=== PATIENT | female | born 1995 | race Caucasian/White ===

== ENCOUNTER 2016-11-27 16:06 | Emergency (ER) | payer MEDICAID, OTHER ==
[~2016-11-27] VITALS: Ht 162.6 cm; Wt 70.5 kg
[2016-11-27 16:09] VITALS: Ht 162.6 cm; Wt 70.5 kg
[2016-11-27] MEDS ORDERED: ONDANSETRON (ODT) 4 MG TAB ODT STA (16:36)
[2016-11-27] MEDS ORDERED: KETOROLAC 30 MG INJ IM STA (16:36)
[2016-11-27] MEDS ORDERED: ONDA4TAB14 PO (18:05)
[2016-11-27] MEDS ORDERED: IBUP-1542 PO (18:05)
--- NOTE | 2016-11-27 18:14 | ERD ---
ER Documentation Chief Complaint Date/Time DATE: 11/27/16 TIME: 18:07 Chief Complaint bodyache and headache x 4 days HPI Patient is a 29-year-old female with no past medical history who presents to the emergency department for concerns of generalized body aches and a headache. Patient states she has generalized body aches for the last 4 days. Patient is currently on her menstrual period. Patient states she developed a headache yesterday night. Patient describes the pain to be in occipital region. Patient denies any falls or trauma. Patient describes her pain to be a mild, throbbing sensation. Patient denies any radiation of pain. Patient denies any sudden, 10 out of 10, thunderclap onset of her pain. Patient denies taking any medication. Patient admits to nausea however she denies any vomiting. Patient denies any blurry vision, photophobia, phonophobia, LOC. Patient does report having headaches in the past which is similar to the current headache. Patient denies any chest pain, shortness of breath, abdominal pain. ROS All systems reviewed and are negative except as per history of present illness. Medications Home Meds Active Scripts Ondansetron (Ondansetron Odt) 4 Mg Tab.rapdis, 4 MG PO Q6H Y for NAUSEA AND/OR VOMITING, #10 TAB Prov:YOLANDA BEE PA-C 11/27/16 Ibuprofen* (Motrin*) 600 Mg Tab, 600 MG PO Q6, #30 TAB Prov:YOLANDA BEE PA-C 11/27/16 Allergies Allergies: Coded Allergies: No Known Allergy (Unverified , 12/17/14) PMhx/Soc Medical and Surgical Hx: pt denies Medical Hx, pt denies Surgical Hx Hx Alcohol Use: No Hx Substance Use: No Hx Tobacco Use: No Physical Exam Vitals Vital Signs Date Time Temp Pulse Resp B/P Pulse Ox O2 Delivery O2 Flow Rate FiO2 11/27/16 16:09 96.9 76 20 115/70 100 Physical Exam GENERAL: Well-developed, well-nourished female. Appears in no acute distress. Taking in full sentences. HEAD: Normocephalic, atraumatic. EYES: Pupils are equally reactive bilaterally. EOMs grossly intact. No conjunctival erythema. ENT: Moist mucous membranes. No uvula deviation. No kissing tonsils. NECK: Supple. Normal range of motion of the neck. No neck stiffness noted. Tra LUNG: Clear to auscultation bilaterally. No rhonchi, wheezing, rales or coarse breath sounds. HEART: Regular rate and rhythm. No murmurs, rubs or gallops. BACK: No midline tenderness. EXTREMITIES: Equal pulses bilaterally. No peripheral clubbing, cyanosis or edema. No unilateral leg swelling. NEUROLOGIC: Alert and oriented x3, cooperative. Mood and affect appropriate to situation. Cranial nerves II through XII are grossly intact. Normal speech. Motor exam: 5/5 strength in upper and lower extremities. Sensory exam: Sensation intact to light touch on all four extremities. Cerebellar function exam: Rapid alternating movements intact. No dysmetria on [id number] test. Steady gait. No pronator drift. SKIN: Normal color. Warm and dry. No rashes or lesions. Results 24 hrs Current Medications Medications (Trade) Dose Ordered Sig/José Miguel Route PRN Reason Start Time Stop Time Status Last Admin Dose Admin Ketorolac Tromethamine (Toradol) 30 mg ONCE STAT IM 11/27/16 16:36 11/27/16 16:37 DC 11/27/16 16:47 Ondansetron HCl (Zofran Odt) 4 mg ONCE STAT ODT 11/27/16 16:36 11/27/16 16:37 DC 11/27/16 16:46 Procedures/MDM MEDICAL DECISION MAKING: This a 21 year old female who presents to the ED with generalized body aches and headache. Vital signs were reviewed. Patient was afebrile. Patient is not hypoxic. Patient stated that the headache was gradual. Patient stated that current headache was similar to headaches in the past. Patient denied any fevers, neck stiffness, jaw claudication, visual changes or LOC. Full neurological exam was normal. Patient is currently on her menstrual period. Patient was given Toradol IM and Zofran her in the ED. Patient reported significant improvement in symptoms. Patient noted to be talking on phone in ED results waiting room without any distress. Given these findings, the patient's presentation is most consistent with tension vs menstrual headache. I have a much lower clinical concern for intracranial hemorrhage, meningitis, encephalitis, CO poisoning, temporal arteritis, benign intracranial hypertension , intracranial mass, glaucoma, preeclampsia, sinusitis, migraine headache, cluster headache. PRESCRIPTIONS: Ibuprofen, Zofran DISCHARGE: At this time, patient is stable for discharge and outpatient management. I have encouraged the patient to hydrate well. I have instructed the patient to follow- up with his/her primary care physician in 1-2 days. If symptoms persist, patient may need to see a specialist for further examinations and testing. I have instructed the patient to promptly return to the ER at any time for any new or worsening symptoms including increased increased pain, fever, nausea, vomiting, numbness, neck stiffness, visual changes, weakness or LOC. The patient and/or family expressed understanding of and agreement with this plan. All questions were answered. Home care instructions were provided. Departure Diagnosis: Primary Impression: Headache Headache type: unspecified Headache chronicity pattern: unspecified pattern Intractability: not intractable Qualified Code: R51 - Nonintractable headache, unspecified chronicity pattern, unspecified headache type Condition: Stable Patient Instructions: Self-Care for Headaches Referrals: [facility] YOU HAVE RECEIVED A MEDICAL SCREENING EXAM AND THE RESULTS INDICATE THAT YOU DO NOT HAVE A CONDITION THAT REQUIRES URGENT TREATMENT IN THE EMERGENCY DEPARTMENT. FURTHER EVALUATION AND TREATMENT OF YOUR CONDITION CAN WAIT UNTIL YOU ARE SEEN IN YOUR DOCTORS OFFICE WITHIN THE NEXT 1-2 DAYS. IT IS YOUR RESPONSIBILITY TO MAKE AN APPOINTMENT FOR FOLOW-UP CARE. IF YOU HAVE A PRIMARY DOCTOR --you should call your primary doctor and schedule an appointment IF YOU DO NOT HAVE A PRIMARY DOCTOR YOU CAN CALL OUR PHYSICIAN REFERRAL HOTLINE AT IF YOU CAN NOT AFFORD TO SEE A PHYSICIAN YOU CAN CHOSE FROM THE FOLLOWING [facility] [address] [facility]. [facility] [address] [facility]. [facility] [address] [facility] [address] [facility]. [facility] [address] [facility]. [facility]. [address] [facility]. [facility] YOU HAVE RECEIVED A MEDICAL SCREENING EXAM AND THE RESULTS INDICATE THAT YOU DO NOT HAVE A CONDITION THAT REQUIRES URGENT TREATMENT IN THE EMERGENCY DEPARTMENT. FURTHER EVALUATION AND TREATMENT OF YOUR CONDITION CAN WAIT UNTIL YOU ARE SEEN IN YOUR DOCTORS OFFICE WITHIN THE NEXT 1-2 DAYS. IT IS YOUR RESPONSIBILITY TO MAKE AN APPOINTMENT FOR FOLOW-UP CARE. IF YOU HAVE A PRIMARY DOCTOR --you should call your primary doctor and schedule and appointment IF YOU DO NOT HAVE A PRIMARY DOCTOR YOU CAN CALL OUR PHYSICIAN REFERRAL HOTLINE AT . IF YOU CAN NOT AFFORD TO SEE A PHYSICIAN YOU CAN CHOSE FROM THE FOLLOWING [facility] INSTITUTIONS: [facility] [address] [place] [address] [facility] [address] [place] [address] [facility] [address] [place] [address] Additional Instructions: Call your primary care doctor TOMORROW for an appointment during the next 1-2 days.See the doctor sooner or return here if your condition worsens before your appointment time. YOLANDA BEE PA-C Nov 27, 2016 18:14
== END 2016-11-27 18:10 | disposition home or self-care (01) ==
LOC: FTE 16:06
DX: R51 Headache (principal); R11.0 Nausea
CPT/HCPCS: 96372; J1885; Z7502; Z7610

== ENCOUNTER 2016-12-11 10:48 | Emergency (ER) | payer MEDICAID, OTHER ==
[~2016-12-11] VITALS: Ht 167.6 cm; Wt 71.5 kg
[~2016-12-11 10:48] MED LIST: IBUP-1542 PO; ONDA4TAB14 PO
[2016-12-11 10:51] VITALS: Ht 167.6 cm; Wt 71.5 kg
[2016-12-11] MEDS ORDERED: ALPRAZOLAM 0.25 MG TAB PO ONE (11:30)
[2016-12-11 12:00] LABS: BASOPHILS % 0.3 % (0.0-2.0); EOSINOPHILS # 0.1 10^3/ul (0.0-0.5); EOSINOPHILS % 1.2 % (0.0-7.0); HEMATOCRIT 36.4 % (37.0-47.0); HEMOGLOBIN 12.1 g/dl (12.0-16.0); LYMPHOCYTES # 2.5 10^3/ul (0.8-2.9); LYMPHOCYTES % 32.7 % (15.0-51.0); MEAN CORPUSCULAR HEMOGLOBIN 28.2 pg (29.0-33.0); MEAN CORPUSCULAR HGB CONC 33.2 g/dl (32.0-37.0); MEAN CORPUSCULAR VOLUME 84.8 fl (82.0-101.0); MEAN PLATELET VOLUME 10.2 fl (7.4-10.4); MONOCYTE # 0.7 10^3/ul (0.3-0.9); MONOCYTES % 9.1 % (0.0-11.0); NEUTROPHIL # 4.3 10^3/ul (1.6-7.5); NEUTROPHILS % 56.3 % (39.0-77.0); PLATELET COUNT 210 10^3/UL (140-415); RED BLOOD COUNT 4.29 10^6/ul (4.20-5.40); RED CELL DISTRIBUTION WIDTH 12.7 % (11.5-14.5); WHITE BLOOD COUNT 7.7 10^3/ul (4.8-10.8)
--- NOTE | 2016-12-11 12:46 | RADRPT ---
PROCEDURE: CT Head without. CLINICAL INDICATION: 21-year-old female with headaches. TECHNIQUE: The study was performed utilizing a multi-slice, multidetector CT scanner. Direct spira l 1 mm axial sections were obtained through the head without the use of intravenous contrast materia l. 1 or more of the following dose reduction techniques were utilized: Automated exposure control, adjustment of the mA and/or kV according to patient's size, iterative reconstruction technique. Co melani and sagittal reformations were obtained. The images were reviewed on a PACS workstation. RADIATION DOSE: CTDIvol: 44.9 mGyDLP: 720.2 mGy-cm COMPARISON: No prior studies are available for comparison. FINDINGS: There is no intracranial hemorrhage, extra-axial fluid collection, mass lesion, midline shift or hyd rocephalus. The ventricles, sulci and cisterns are within normal limits. The white matter is unrem arkable. The tom-white matter differentiation is preserved. The basal cisterns are patent. The m idline structures are intact. The orbits, calvarium and extracranial soft tissues are normal in genevieve earance. The visualized paranasal sinuses, mastoid air cells and middle ear cavities are normally ae rated. IMPRESSION: 1. No acute intracranial abnormality. No intracranial hemorrhage, extra-axial fluid collection, ma ss lesion or hydrocephalous. RPTAT: HGAS .Colt Caballero MD, MD Date Time Electronically viewed and signed by .Colt Caballero MD, MD on 12/11/2016 12:45 .S/
[2016-12-11] MEDS ORDERED: ALPR0.5T PO (12:56)
[2016-12-11] MEDS ORDERED: NAPR-688 PO (12:56)
--- NOTE | 2016-12-11 17:55 | ERD ---
ER Documentation Chief Complaint Date/Time DATE: 12/11/16 TIME: 17:53 Chief Complaint Complains of headache, weakness and being stressed out HPI 1-year-old woman with multiple complaints including "months" of intermittent chest pain, dizziness, weakness, and scalp pain with headache. She was seen and evaluated recently and workup was negative, she has been told in the past that she is anemic but denies melena, blood per rectum, or menorrhagia. Patient denies trauma, no weight loss, no fevers or chills, no recent travel or antibiotic use. Upon further questioning she states symptoms usually associated with work and she states she feels "stressed out" due to her busy schedule, work, school, and single motherhood. ROS All systems reviewed and are negative except as per history of present illness. Medications Home Meds Active Scripts Alprazolam* (Xanax*) 0.5 Mg Tab, 0.5 MG PO TID for ANXIETY, #12 TAB Prov:EDIN CAMPUZANO MD 12/11/16 Naproxen* (Naproxen*) 500 Mg Tablet, 500 MG PO BID Y for PAIN, #30 TAB Prov:EDIN CAMPUZANO MD 12/11/16 Ondansetron (Ondansetron Odt) 4 Mg Tab.rapdis, 4 MG PO Q6H Y for NAUSEA AND/OR VOMITING, #10 TAB Prov:YOLANDA BEE PA-C 11/27/16 Ibuprofen* (Motrin*) 600 Mg Tab, 600 MG PO Q6, #30 TAB Prov:YOLANDA BEE PA-C 11/27/16 Allergies Allergies: Coded Allergies: No Known Allergy (Unverified , 12/17/14) PMhx/Soc None Medical and Surgical Hx: pt denies Surgical Hx History of Surgery: No Anesthesia Reaction: No Hx Neurological Disorder: No Hx Respiratory Disorders: No Hx Cardiac Disorders: No Hx Psychiatric Problems: No Hx Miscellaneous Medical Probl: Yes (ANEMIA) Hx Alcohol Use: No Hx Substance Use: No Hx Tobacco Use: No Smoking Status: Never smoker FmHx Family History: No diabetes Physical Exam Vitals Vital Signs Date Time Temp Pulse Resp B/P Pulse Ox O2 Delivery O2 Flow Rate FiO2 12/11/16 10:51 98.6 85 20 123/80 99 Physical Exam GENERAL: Well-developed, well-nourished, well-hydrated, appears anxious HEENT: Moist mucous membranes, pink conjunctiva, no cervical spine tenderness or step-off deformities, no goiter, no jaundice or icterus, extraocular movements intact without pain. No submandibular induration, and no pharyngeal erythema NEURO: Alert and oriented 3, cranial nerves II through XII intact bilaterally, pupils equal round reactive to light, no focal deficits or facial asymmetry, sensation intact distally Strength 5/5 in upper and lower extremities bilaterally CARDIAC: Regular rate and rhythm, no murmurs rubs or gallops LUNGS: Clear bilaterally no wheezing crackles or stridor ABDOMEN: Soft nontender, no guarding, no rigidity, no rebound, no psoas sign no obturator sign. Normoactive bowel sounds SKIN: Warm and dry to touch, no abrasions, contusions, or hematomas, no lacerations, no ecchymosis, no target lesions, and without ulcers EXTREMITIES: No clubbing cyanosis or edema, calves are bilaterally symmetrical, no Homans sign, no popliteal cord sign. Distal pulses equal and bilateral PSYCH: Anxious Result Diagram: 12/11/16 1143 Results 24 hrs Laboratory Tests Test 12/11/16 11:43 White Blood Count 7.710^3/ul Red Blood Count 4.2910^6/ul Hemoglobin 12.1g/dl Hematocrit 36.4% Mean Corpuscular Volume 84.8fl Mean Corpuscular Hemoglobin 28.2pg Mean Corpuscular Hemoglobin Concent 33.2g/dl Red Cell Distribution Width 12.7% Platelet Count 57381^3/UL Mean Platelet Volume 10.2fl Neutrophils % 56.3% Lymphocytes % 32.7% Monocytes % 9.1% Eosinophils % 1.2% Basophils % 0.3% Nucleated Red Blood Cells % 0.0/100WBC Neutrophils # 4.310^3/ul Lymphocytes # 2.510^3/ul Monocytes # 0.710^3/ul Eosinophils # 0.110^3/ul Basophils # 0.010^3/ul Nucleated Red Blood Cells # 0.010^3/ul Current Medications Medications (Trade) Dose Ordered Sig/José Miguel Route PRN Reason Start Time Stop Time Status Last Admin Dose Admin Alprazolam (Xanax) 0.5 mg ONCE ONCE PO 12/11/16 11:30 12/11/16 11:31 DC 12/11/16 11:32 Procedures/MDM CT scan of the brain was performed that was negative for acute bleed mass or shift. CBC was normal. I administered alprazolam 1 mg p.o. with good response. Differential diagnoses considered, included but not limited to acute coronary syndrome, pulmonary embolism, aortic dissection, abdominal aortic aneurysm, sepsis, stroke, meningitis, encephalitis, pneumonia, appendicitis, cholecystitis , bowel obstruction, pyelonephritis, nephrolithiasis, cystitis, as well as metabolic, hematologic, and electrolyte abnormalities. As well as abscess, cellulitis, fractures, and dislocations. Patient feels much better at this time, and vital signs are normal, symptoms have improved. I did give strict instructions to return to the ED if symptoms continue or worsen, patient will otherwise follow-up with primary care physician. Patient understood instructions and agreed to plan. Disclaimer: Inadvertent spelling and grammatical errors are likely due to EHR/ dictation software use and do not reflect on the overall quality of patient care. Also, please note that the electronic time recorded on this note does not necessarily reflect the actual time of the patient encounter. Departure Diagnosis: Primary Impression: Headache Headache type: unspecified Headache chronicity pattern: acute headache Intractability: not intractable Qualified Code: R51 - Acute nonintractable headache, unspecified headache type Additional Impression: Anxiety Condition: Good Patient Instructions: Anxiety Reaction, Headache, Tension Referrals: JOSE BAPTISTE MD, JOSEF MD SINGH, BALBIR MD ZOHRABIAN, DAVID MD Dec 11, 2016 17:55
== END 2016-12-11 13:15 | disposition home or self-care (01) ==
LOC: FTE 10:48
DX: R51 Headache (principal); F41.9 Anxiety disorder, unspecified
CPT/HCPCS: 36415; 70450; 85025; Z7502; Z7610

== ENCOUNTER 2018-01-04 15:48 | Emergency (ER) | END 2018-01-04 18:30 | disposition home or self-care (01) ==

== ENCOUNTER 2018-05-28 14:05 | Emergency (ER) | payer OTHER ==
[~2018-05-28] VITALS: Ht 170.2 cm; Wt 76.6 kg
[~2018-05-28 14:05] MED LIST changes: +ALPR0.5T PO; +CEPH-443 PO; +NAPR-688 PO
[2018-05-28 14:07] VITALS: RESP 18; Ht 170.2 cm; Wt 76.6 kg
[2018-05-28] MEDS ORDERED: HYDR25CA PO (16:47)
--- NOTE | 2018-05-28 16:52 | ERD ---
ER Documentation Chief Complaint Chief Complaint dizziness feels anxious and just wants lab work HPI This is a 23-year-old female that presents to the emergency room with complaint of lightheadedness, dizziness, difficulty focusing, heart palpitations, chest tightness. States she is has a history of anxiety. She does not take med ications or go to counseling. She is concerned that she may be anemic as she has history of anemia. Not get regular medical care from primary care provider. She states she is stressed out as she is a single parent, goes to 2 different schools, and works full-time. Also states she has difficulty sleeping due to her anxiety. Denies SI. She has tried Xanax in the past and did not like how it made her feel. She prefers to use exercise to manage her anxiety. ROS All systems reviewed and are negative except as per history of present illness. Medications Home Meds Active Scripts Hydroxyzine Pamoate* (Vistaril*) 25 Mg Capsule, 25 MG PO Q6H PRN for ANXIETY for 7 Days, #15 CAP Prov:KAYCEE CHAUHAN NP 05/28/18 Ibuprofen* (Motrin*) 600 Mg Tab, 600 MG PO Q6, #30 TAB Prov:WALLACE CARPENTER PA-C 01/04/18 Cephalexin* (Keflex*) 500 Mg Capsule, 500 MG PO QID for 7 Days, CAP Prov:WALLACE CARPENTER PA-C 01/04/18 Alprazolam* (Xanax*) 0.5 Mg Tab, 0.5 MG PO TID for ANXIETY, #12 TAB Prov:EDIN CAMPUZANO MD 12/11/16 Naproxen* (Naproxen*) 500 Mg Tablet, 500 MG PO BID PRN for PAIN, #30 TAB Prov:EDIN CAMPUZANO MD 12/11/16 Ondansetron (Ondansetron Odt) 4 Mg Tab.rapdis, 4 MG PO Q6H PRN for NAUSEA AND/OR VOMITING, #10 TAB Prov:YOLANDA BEE PA-C 11/27/16 Ibuprofen* (Motrin*) 600 Mg Tab, 600 MG PO Q6, #30 TAB Prov:YOLANDA BEE PA-C 11/27/16 Allergies Allergies: Coded Allergies: No Known Allergy (Unverified , 12/17/14) PMhx/Soc Medical and Surgical Hx: pt denies Surgical Hx History of Surgery: No Anesthesia Reaction: No Hx Neurological Disorder: No Hx Respiratory Disorders: No Hx Cardiac Disorders: No Hx Psychiatric Problems: No Hx Miscellaneous Medical Probl: Yes (ANEMIA, Anxiety) Hx Alcohol Use: No Hx Substance Use: No Hx Tobacco Use: No Smoking Status: Never smoker FmHx Family History: No diabetes, No coronary disease, No other Physical Exam Vitals Vital Signs Date Temp Pulse Resp B/P (MAP) Pulse Ox O2 O2 Flow FiO2 Time Delivery Rate 05/28/18 61 100/59 16:53 (73) 72 101/65 (77) 77 103/68 (80) 05/28/18 97.8 62 18 120/68 97 14:07 (85) Physical Exam GENERAL APPEARANCE: Well developed, well nourished, alert and cooperative, and appears to be in no acute distress. HEAD: normocephalic. EYES: PERRL, EOMI. Vision is grossly intact. EARS: External auditory canals and tympanic membranes clear, hearing grossly intact. NOSE: No nasal discharge. THROAT: Oral cavity and pharynx normal. No inflammation, swelling, exudate, or lesions. Teeth and gingiva in good general condition. NECK: Neck supple, non-tender without lymphadenopathy, masses or thyromegaly. CARDIAC: Normal S1 and S2. No S3, S4 or murmurs. Rhythm is regular. There is no peripheral edema, cyanosis or pallor. Extremities are warm and well perfused. Capillary refill is less than 2 seconds. No carotid bruits. LUNGS: Clear to auscultation and percussion without rales, rhonchi, wheezing or diminished breath sounds. ABDOMEN: Positive bowel sounds. Soft, non-distended, non-tender. No guarding or rebound. No murmurs MUSKULOSKELETAL: Adequately aligned spine. ROM intact spine and extremities. No joint erythema or tenderness. Normal muscular development. Normal gait. BACK: Examination of the spine reveals normal gait and posture, no spinal deformity, symmetry of spinal muscles, without tenderness, decreased range of motion or muscular spasm. EXTREMITIES: No significant deformity or joint abnormality. No edema. Peripheral pulses intact. No varicosities. LOWER EXTREMITY: Examination of both feet reveals all toes to be normal in size and symmetry, normal range of motion, normal sensation with distal capillary filling of less than 2 seconds without tenderness, swelling, discoloration, nodules, weakness or deformity; examination of both ankles, knees, legs, and hips reveals normal range of motion, normal sensation without tenderness, swelling, discoloration, crepitus, weakness or deformity. NEUROLOGICAL: CN II-XII intact. Strength and sensation symmetric and intact throughout. Reflexes 2+ throughout. Cerebellar testing normal. SKIN: Skin normal color, texture and turgor with no lesions or eruptions PSYCHIATRIC: The mental examination revealed the patient was oriented to person, place, and time. The patient was able to demonstrate good judgment and reason, without hallucinations, abnormal affect or abnormal behaviors during the examination. Patient is not suicidal. Result Diagram: 05/28/18 1646 05/28/18 1646 Results 24 hrs Laboratory Tests Test 05/28/18 16:37 05/28/18 16:38 05/28/18 16:46 Bedside Urine pH (LAB) 6.0 Bedside Urine Protein (LAB) Negative Bedside Urine Glucose (UA) Negative Bedside Urine Ketones (LAB) Negative Bedside Urine Blood 3+ Bedside Urine Nitrite (LAB) Negative Bedside Urine Leukocyte Esterase 2+ (L POC Beta HCG, Qualitative NEGATIVE White Blood Count 6.8 10^3/ul Red Blood Count 4.10 10^6/ul Hemoglobin 11.5 g/dl Hematocrit 35.8 % Mean Corpuscular Volume 87.3 fl Mean Corpuscular Hemoglobin 28.0 pg Mean Corpuscular 32.1 g/dl Hemoglobin Concent Red Cell Distribution Width 12.4 % Platelet Count 210 10^3/UL Mean Platelet Volume 10.2 fl Immature Granulocytes % 0.300 % Neutrophils % 55.0 % Lymphocytes % 35.2 % Monocytes % 7.3 % Eosinophils % 1.9 % Basophils % 0.3 % Nucleated Red Blood Cells % 0.0 /100WBC Immature Granulocytes # 0.020 10^3/ul Neutrophils # 3.8 10^3/ul Lymphocytes # 2.4 10^3/ul Monocytes # 0.5 10^3/ul Eosinophils # 0.1 10^3/ul Basophils # 0.0 10^3/ul Nucleated Red Blood Cells # 0.0 10^3/ul Sodium Level 136 mmol/L Potassium Level 4.0 mmol/L Chloride Level 102 mmol/L Carbon Dioxide Level 25 mmol/L Anion Gap 9 Blood Urea Nitrogen 12 mg/dl Creatinine 0.62 mg/dl Est Glomerular Filtrat Rate mL/min > 60 mL/min Glucose Level 88 mg/dl Calcium Level 9.5 mg/dl Total Bilirubin 0.2 mg/dl Direct Bilirubin 0.00 mg/dl Indirect Bilirubin 0.2 mg/dl Aspartate Amino Transf (AST/SGOT) 25 IU/L Alanine 46 IU/L Aminotransferase (ALT/SGPT) Alkaline Phosphatase 69 IU/L Total Protein 7.7 g/dl Albumin 4.3 g/dl Globulin 3.40 g/dl Albumin/Globulin Ratio 1.26 Procedures/MDM This 23 yo female presented to the ER with multiple complaints including anxiety, lightheaded, difficulty focusing, insomnia. Reports intermittent heart palpitations and chest tightness. Feels better with exercise. Reports multiple life stressors. Not on antidepressant, not seeing psychiatrist, does not currently have primary care doctor. Reports medical history includes anemia, anxiety, ParaGard. Denies tobacco use, alcohol use, recreational drug use. ED COURSE: The patient was stable throughout ED course. I kept the patient informed of laboratory results throughout the ED course. EKG: Read by Dr. Gonzalez attending physician. EKG shows normal sinus rhythm at a rate of 66bpm. No arrhythmias, acute ST elevations or T wave changes were noted. PROCEDURES: Orthostatic VS: Supine: 61 bpm, BP 100/59 Sittin bpm, BP 101/65 Standin bpm, BP 103/68 MEDICATIONS GIVEN: No anxiolytic provided in ER as patient had her small child with her and was driving. No other medications indicated, no cp. This patient has been evaluated for her concern of hx of anemia and recent dizziness with standing. Laboratory results are negative for anemia. Her hemoglobin is slightly decreased, however she is currently menstruating and not concerning of acute blood loss. Low suscpicion for dizziness having a neurogenic or cardiac cause. She has no neuro deficits, ECG NSR, and negative orthostatics. We did not test her TSH level. She has been informed to follow-up with PMD to have TSH tested and treated if necessary. The patient is clinically well appearing and stable. Symptoms are not suggestive of cardiac ischemia, pulmonary embolus, aortic dissection, or other serious etiology. These diagnoses have been considered and excluded clinically and with additional diagnostic studies as indicated. Nonetheless, it is understood by both the patient and provider that no clinical or diagnostic assessment can entirely exclude such diseases. Chest pain and stroke precautions have been given and the patient has been advised to return for worsening symptoms or any concerns. Prescription for vistaril provided with strict instructions to only use medication to help with sleep. Side effects and precautions provided. At discharge patient verbalized that she has plan to rearrange her life to decrease her stressors. She verbalized appreciating for care provided. Departure Diagnosis: Primary Impression: Anxiety Condition: Stable Patient Instructions: Your Body's Response to Anxiety, Anxiety Reaction Referrals: RO CORONA MD [facility] YOU HAVE RECEIVED A MEDICAL SCREENING EXAM AND THE RESULTS INDICATE THAT YOU DO NOT HAVE A CONDITION THAT REQUIRES URGENT TREATMENT IN THE EMERGENCY DEPARTMENT. FURTHER EVALUATION AND TREATMENT OF YOUR CONDITION CAN WAIT UNTIL YOU ARE SEEN IN YOUR DOCTORS OFFICE WITHIN THE NEXT 1-2 DAYS. IT IS YOUR RESPONSIBILITY TO MAKE AN APPOINTMENT FOR FOLOW-UP CARE. IF YOU HAVE A PRIMARY DOCTOR --you should call your primary doctor and schedule an appointment IF YOU DO NOT HAVE A PRIMARY DOCTOR YOU CAN CALL OUR PHYSICIAN REFERRAL HOTLINE AT IF YOU CAN NOT AFFORD TO SEE A PHYSICIAN YOU CAN CHOSE FROM THE FOLLOWING [facility] [address] [facility]. [facility] [address] [facility]. [facility] [address] [facility] [facility] [address] [facility]. [facility] [address] [facility]. [facility]. [address] [place] Additional Instructions: Follow-up with community primary care provider. Take Vistaril at night to help with sleep. Do not take while operating the vehicle, do not take with alcohol. This medication may make you drowsy. Return to the ER immediately with any worsening or changing symptoms. KAYCEE CHAUHAN NP May 28, 2018 16:52
[2018-05-28 16:53] VITALS: BP 103/68; PULSE 77
== END 2018-05-28 17:57 | disposition home or self-care (01) ==
LOC: FTE 14:05
DX: F41.9 Anxiety disorder, unspecified (principal); R42 Dizziness and giddiness
CPT/HCPCS: 36415; 80053; 81003; 81025; 85025; 93005; Z7502

== ENCOUNTER 2018-07-12 10:29 | Emergency (ER) | payer OTHER ==
[~2018-07-12] VITALS: Ht 167.6 cm; Wt 76.8 kg
[~2018-07-12 10:29] MED LIST changes: +HYDR25CA PO
[2018-07-12 10:33] VITALS: BP 108/71; PULSE 69; RESP 18; Ht 167.6 cm; Wt 76.8 kg
[2018-07-12] MEDS ORDERED: HYDR-3029 PO (11:44)
[2018-07-12] MEDS ORDERED: FLUO10CA26 PO (11:44)
--- NOTE | 2018-07-12 12:52 | ERD ---
ER Documentation Chief Complaint Chief Complaint pt has anxiety x 2 days HPI 23-year-old female presenting with anxiety for 2 days. Patient states that in the past she is taking Xanax was alleviated her symptoms however she was concerned about medication dependency and does not want to be on medication. Patient also states she is having a hard time getting out of bed and feels sad. She has not been able to follow-up with her primary doctor. She has no suicidal or homicidal ideations. Denies any chest pain or shortness of breath. Denies fevers. Denies medical problems. NKDA. Surgical history denies. Social history denies ROS All systems reviewed and are negative except as per history of present illness. Medications Home Meds Active Scripts Fluoxetine Hcl* (Prozac*) 10 Mg Capsule, 10 MG PO DAILY, #30 CAP Prov:KATHY CAMERON PA-C 07/12/18 Hydroxyzine Hcl* (Hydroxyzine Hcl*) 10 Mg Tablet, 10 MG PO Q6H PRN for ANXIETY, #30 TAB Prov:KATHY CAMERON PA-C 07/12/18 Hydroxyzine Pamoate* (Vistaril*) 25 Mg Capsule, 25 MG PO Q6H PRN for ANXIETY for 7 Days, #15 CAP Prov:KAYCEE CHAUHAN NP 05/28/18 Ibuprofen* (Motrin*) 600 Mg Tab, 600 MG PO Q6, #30 TAB Prov:WALLACE CARPENTER PA-C 01/04/18 Cephalexin* (Keflex*) 500 Mg Capsule, 500 MG PO QID for 7 Days, CAP Prov:WALLACE CARPENTER PA-C 01/04/18 Alprazolam* (Xanax*) 0.5 Mg Tab, 0.5 MG PO TID for ANXIETY, #12 TAB Prov:EDIN CAMPUZANO MD 12/11/16 Naproxen* (Naproxen*) 500 Mg Tablet, 500 MG PO BID PRN for PAIN, #30 TAB Prov:EDIN CAMPUZANO MD 12/11/16 Ondansetron (Ondansetron Odt) 4 Mg Tab.rapdis, 4 MG PO Q6H PRN for NAUSEA AND/OR VOMITING, #10 TAB Prov:YOLANDA BEE PA-C 11/27/16 Ibuprofen* (Motrin*) 600 Mg Tab, 600 MG PO Q6, #30 TAB Prov:CRISTALYOLANDA PA-C 11/27/16 Allergies Allergies: Coded Allergies: No Known Allergy (Unverified , 07/12/18) PMhx/Soc History of Surgery: No Anesthesia Reaction: No Hx Neurological Disorder: No Hx Respiratory Disorders: No Hx Cardiac Disorders: No Hx Psychiatric Problems: No Hx Miscellaneous Medical Probl: Yes (ANEMIA, Anxiety) Hx Alcohol Use: No Hx Substance Use: No Hx Tobacco Use: No FmHx Family History: No diabetes, No coronary disease, No other Physical Exam Vitals Vital Signs Date Temp Pulse Resp B/P (MAP) Pulse Ox O2 O2 Flow FiO2 Time Delivery Rate 07/12/18 98.7 69 18 108/71 100 10:33 (83) Physical Exam GENERAL: The patient is well-appearing, well-nourished, in no acute distress HEENT: Atraumatic. Conjunctivae are pink. Pupils equal, round, and reactive to light. There is no scleral icterus. Tympanic membranes clear bilaterally. Oropharynx clear. NECK: C-spine is soft and supple. There is no meningismus. There is no cervical lymphadenopathy. CHEST: Clear to auscultation bilaterally. There are no rales, wheezes or rhonchi. HEART: Regular rate and rhythm. No murmurs, clicks, rubs or gallops. Procedures/MDM MDM: 23-year-old female presenting with findings consistent with anxiety. I have low suspicion for cardiac or pulmonary emergency. I have low suspicion for infectious process. Patient does not require antibiotic treatment. Patient is told symptoms change or worsen to return immediately to the ER. Patient is recommended to follow-up with primary care and to obtain psychiatric consultation. All questions answered at discharge Departure Diagnosis: Primary Impression: Anxiety Condition: Stable Patient Instructions: Your Body's Response to Anxiety Referrals: COMM[facility] YOU HAVE RECEIVED A MEDICAL SCREENING EXAM AND THE RESULTS INDICATE THAT YOU DO NOT HAVE A CONDITION THAT REQUIRES URGENT TREATMENT IN THE EMERGENCY DEPARTMENT. FURTHER EVALUATION AND TREATMENT OF YOUR CONDITION CAN WAIT UNTIL YOU ARE SEEN IN YOUR DOCTORS OFFICE WITHIN THE NEXT 1-2 DAYS. IT IS YOUR RESPONSIBILITY TO MAKE AN APPOINTMENT FOR FOLOW-UP CARE. IF YOU HAVE A PRIMARY DOCTOR --you should call your primary doctor and schedule an appointment IF YOU DO NOT HAVE A PRIMARY DOCTOR YOU CAN CALL OUR PHYSICIAN REFERRAL HOTLINE AT IF YOU CAN NOT AFFORD TO SEE A PHYSICIAN YOU CAN CHOSE FROM THE FOLLOWING [facility] CL[facility] [address] [facility] [address] [facility] [address] [facility] [address] [facility] [address] [facility]. [facility]. [address] Additional Instructions: FOLLOW UP WITH YOUR PRIMARY CARE PHYSICIAN TOMORROW.Return to this facility if you are not improving as expected. KATHY CAMERON PA-C Jul 12, 2018 12:52
== END 2018-07-12 12:39 | disposition home or self-care (01) ==
LOC: FTE 10:29
DX: F41.9 Anxiety disorder, unspecified (principal)
CPT/HCPCS: 99283

== ENCOUNTER 2018-08-17 13:47 | Emergency (ER) | payer OTHER ==
[~2018-08-17] VITALS: Ht 167.6 cm; Wt 77.0 kg
[~2018-08-17 13:47] MED LIST changes: +FLUO10CA26 PO; +HYDR-3029 PO
[2018-08-17 14:01] VITALS: BP 104/60; PULSE 77; RESP 19; Ht 167.6 cm; Wt 77.0 kg
[2018-08-17] MEDS ORDERED: LOPE2CAP PO (15:14)
[2018-08-17] MEDS ORDERED: DICY10CA40 PO (15:14)
--- NOTE | 2018-08-17 15:16 | ERD ---
ER Documentation Chief Complaint Chief Complaint DIARRHEA, ON AND ON ABDOMINAL PAIN SINCE WEDNESDAY HPI 23-year-old female is here with intermittent abdominal pain with diarrhea for the past 3 to 4 days. No dark or bloody stool. She had nausea when it first started but no vomiting. Symptoms began after eating seafood. She has control IUD so she does not believe she is . She took Mylanta which help with the pain. No fever. No urinary symptoms. ROS All systems reviewed and are negative except as per history of present illness. Medications Home Meds Active Scripts Loperamide Hcl* (Imodium*) 2 Mg Capsule, 2 MG PO .AFTER EA LOOSE BM PRN for DIARRHEA, #20 TAB Prov:SARTHAK MAY PA-C 08/17/18 Dicyclomine HCl (Dicyclomine HCl) 10 Mg Capsule, 10 MG PO TID PRN for ABDOMINAL CRAMPING, #20 CAP Prov:SARTHAK MAY PA-C 08/17/18 Fluoxetine Hcl* (Prozac*) 10 Mg Capsule, 10 MG PO DAILY, #30 CAP Prov:KATHY CAMERON PA-C 07/12/18 Hydroxyzine Hcl* (Hydroxyzine Hcl*) 10 Mg Tablet, 10 MG PO Q6H PRN for ANXIETY, #30 TAB Prov:KATHY CAMERON PA-C 07/12/18 Hydroxyzine Pamoate* (Vistaril*) 25 Mg Capsule, 25 MG PO Q6H PRN for ANXIETY for 7 Days, #15 CAP Prov:KAYCEE CHAUHAN NP 05/28/18 Ibuprofen* (Motrin*) 600 Mg Tab, 600 MG PO Q6, #30 TAB Prov:WALLACE CARPENTER PA-C 01/04/18 Cephalexin* (Keflex*) 500 Mg Capsule, 500 MG PO QID for 7 Days, CAP Prov:WALLACE CARPENTER PA-C 01/04/18 Alprazolam* (Xanax*) 0.5 Mg Tab, 0.5 MG PO TID for ANXIETY, #12 TAB Prov:EDIN CAMPUZANO MD 12/11/16 Naproxen* (Naproxen*) 500 Mg Tablet, 500 MG PO BID PRN for PAIN, #30 TAB Prov:EDIN CAMPUZANO MD 9/29/17 Ondansetron (Ondansetron Odt) 4 Mg Tab.rapdis, 4 MG PO Q6H PRN for NAUSEA AND/OR VOMITING, #10 TAB Prov:CRISTALYOLANDA WEBBER 11/27/16 Ibuprofen* (Motrin*) 600 Mg Tab, 600 MG PO Q6, #30 TAB Prov:YOLANDA BEE AKBAR 11/27/16 Allergies Allergies: Coded Allergies: No Known Allergy (Unverified , 07/12/18) PMhx/Soc Medical and Surgical Hx: pt denies Surgical Hx History of Surgery: No Anesthesia Reaction: No Hx Neurological Disorder: No Hx Respiratory Disorders: No Hx Cardiac Disorders: No Hx Psychiatric Problems: No Hx Miscellaneous Medical Probl: Yes (ANEMIA, Anxiety) Hx Alcohol Use: No Hx Substance Use: No Hx Tobacco Use: No Smoking Status: Never smoker FmHx Family History: No diabetes Physical Exam Vitals Vital Signs Date Temp Pulse Resp B/P (MAP) Pulse Ox O2 O2 Flow FiO2 Time Delivery Rate 08/17/18 98.2 77 19 104/60 99 14:01 (75) Physical Exam INITIAL VITAL SIGNS: Reviewed by me GENERAL: Awake, alert and oriented x 4, well appearing, nontoxic, speaking in full sentences. No acute distress HEAD: Atraumatic NECK: Supple. No masses. Full range of motion. No meningismus. No midline tenderness. RESPIRATORY: Clear to auscultation bilaterally. Symmetric chest wall rise. No wheezing or rales. No accessory muscle use. CV: Regular rate and rhythm. No murmurs, rubs, or gallops. ABDOMEN: Soft, non-distended. Nontender. Negative [place]. Negative McBurneys point tenderness. No CVA tenderness bilaterally. No guarding. No rebound. Results 24 hrs Laboratory Tests Test 08/17/18 15:06 Bedside Urine pH (LAB) 6.0 Bedside Urine Protein (LAB) Trace Bedside Urine Glucose (UA) Negative Bedside Urine Ketones (LAB) Negative Bedside Urine Blood 1+ Bedside Urine Nitrite (LAB) Negative Bedside Urine Leukocyte Esterase (L Negative POC Beta HCG, Qualitative NEGATIVE Procedures/MDM Patient is a 23-year-old female with abdominal pain. Likely viral versus something she ate. Her GI examination is benign and she has no tenderness to palpation throughout. test is negative. She is discharged with Imod ium and Bentyl. Patient counseled regarding my diagnostic impression and care plan. Prior to discharge all questions answered. Pt agrees with treatment plan and understands strict return precautions. Pt is instructed to follow up with primary care provider within 24-48 hours. Precautionary instructions provided including instructions to return to the ER if not improving or for any worsening or changing symptoms or concerns. Departure Diagnosis: Primary Impression: Abdominal pain Condition: Stable Patient Instructions: Abdominal Pain Additional Instructions: Call your primary care doctor TOMORROW for an appointment during the next 1-2 days.See the doctor sooner or return here if your condition worsens before your appointment time. SARTHAK MAY PA-C Aug 17, 2018 15:16
== END 2018-08-17 15:25 | disposition home or self-care (01) ==
LOC: FTE 13:47
DX: R10.9 Unspecified abdominal pain (principal)
CPT/HCPCS: 81003; 81025; Z7502; 99283